=== PATIENT | female | born 1930 | race Two or more races ===

== ENCOUNTER 2017-11-12 13:21 | Outpatient (CLI) | payer MEDICARE | END 2017-11-12 23:59 | disposition home or self-care (01) | LOC: MSC 13:21 | PROVIDERS: ATTEND Internal Medicine | DX: I11.9 Hypertensive heart disease without heart failure (principal); F03.90 Unspecified dementia, unspecified severity, without behavioral disturbance, psychotic disturbance, mood disturbance, and anxiety; G93.40 Encephalopathy, unspecified; M48.02 Spinal stenosis, cervical region; K21.9 Gastro-esophageal reflux disease without esophagitis; R73.9 Hyperglycemia, unspecified; H26.9 Unspecified cataract; F41.8 Other specified anxiety disorders; M19.90 Unspecified osteoarthritis, unspecified site; E03.9 Hypothyroidism, unspecified; D69.6 Thrombocytopenia, unspecified; Z91.81 History of falling; Z87.81 Personal history of (healed) traumatic fracture; Z98.890 Other specified postprocedural states; E44.0 Moderate protein-calorie malnutrition ==